=== PATIENT | male | born 1985 | race Caucasian/White ===

== ENCOUNTER 2021-05-18 16:03 | Outpatient (CLI) | payer OTHER | END 2021-05-18 16:04 | disposition critical access hospital (66) | LOC: EMS 16:03 | DX: R11.2 Nausea with vomiting, unspecified (principal); R55 Syncope and collapse | CPT/HCPCS: A0425; A0429 ==

== ENCOUNTER 2021-05-18 16:21 | Emergency (ER) | payer OTHER ==
--- NOTE | 2021-05-18 16:30 | ED Physician Documentation ---
History of Present Illness - Stated complaint Stated Complaint: PANIC ATTACK - History obtained from History obtained from: Patient, EMS - Additonal information Additional information: 36-year-old gentleman with history of 1 panic attack in the past has what he thinks was a panic attack today. He was in his usual state of health and then became nauseous and vomited once, and then felt like everything was getting away from him and got panicky. He feels much better now, no medications were given in route. There is no associated chest pain or trouble breathing. His medications include rosuvastatin, lisinopril, and trazodone for sleep. He is also currently on weekly fluconazole for a skin infection. Review of Systems Constitutional: denies: Fever, Chills Cardiac: denies: Chest pain / pressure, Palpitations Respiratory: denies: Dyspnea, Cough PD ED PE NORMAL - Vitals Vital signs reviewed: Yes - General General: Alert and oriented X 3, No acute distress - Neck Neck: Supple, no meningeal sign, Thyroid normal - Cardiac Cardiac: RRR, No murmur - Respiratory Respiratory: No respiratory distress, Clear bilaterally - Abdomen Abdomen: Non tender - Neuro Neuro: Alert and oriented X 3, Normal speech - Psych Psych: Normal mood, Normal affect Results - Vitals Vitals: Vital Signs - 24 hr 05/18/21 16:27 Temperature 37.1 C Heart Rate 98 Respiratory 19 Rate Blood Pressure 145/105 H O2 Saturation 99 Oxygen O2 Source Room air - EKG (time done) 1641 Rate: Rate (enter#) (97) Rhythm: NSR [place]: RAD Intervals: Normal [place] QRS: Normal Ischemia: Non specific changes - Labs Labs: Laboratory Tests 05/18/21 05/18/21 05/18/21 16:40 16:40 16:40 WBC 6.6 RBC 5.16 Hgb 16.5 Hct 46.7 MCV 90.5 MCH 32.0 H MCHC 35.3 RDW 11.6 L Plt Count 206 MPV 9.3 Neut # (Auto) 4.5 Lymph # (Auto) 1.5 [place] # (Auto) 0.5 Eos # (Auto) 0.1 Baso # (Auto) 0.0 Absolute Nucleated RBC 0.00 Nucleated RBC % 0.0 VBG pH 7.418 H VBG pCO2 39.4 L VBG pO2 29.8 VBG HCO3 24.9 VBG Total CO2 26.1 VBG O2 Saturation 64.8 VBG Base Excess 0.5 Sodium 136 Potassium 3.8 Chloride 102 Carbon Dioxide 25 Anion Gap 9.0 BUN 16 Creatinine 1.2 Estimated GFR (MDRD) 68 L Glucose 106 H Calcium 9.5 PD MEDICAL DECISION MAKING - ED course ED course: 36-year-old gentleman presents after resolved panic attack with negative diagnostics and feeling better here. Declined a prescription for recurrent anxiety. Departure - Departure Disposition: 01 Home, Self Care Clinical Impression: Panic attack Condition: Good Record reviewed to determine appropriate education?: Yes Instructions: ED Panic Attack Comments: Call your doctor to arrange a follow-up appointment, make the next available appointment. In the interim, return anytime if worse or if new symptoms develop. Discharge Date/Time: 05/18/21 17:12
[2021-05-18 16:34] VITALS: BP 145/105
[2021-05-18 16:52] LABS: BASOPHILS % (AUTO) 0.2 %; EOSINOPHILS # (AUTO) 0.1 10^3/uL (0.0-0.7); EOSINOPHILS % (AUTO) 1.1 %; HCT - HEMATOCRIT 46.7 % (42.0-52.0); HGB - HEMOGLOBIN 16.5 g/dL (14.0-18.0); LYMPHOCYTES # (AUTO) 1.5 10^3/uL (1.5-3.5); LYMPHOCYTES % (AUTO) 23.1 %; MEAN CORPUSCULAR HGB CONC 35.3 g/dL (32.0-36.0); MEAN CORPUSCULAR VOLUME 90.5 fL (80.0-94.0); MEAN PLATELET VOLUME 9.3 fL (7.4-11.4); MONOCYTES # (AUTO) 0.5 10^3/uL (0.0-1.0); MONOCYTES % (AUTO) 7.2 %; NEUTROPHILS # (AUTO) 4.5 10^3/uL (1.5-6.6); NEUTROPHILS % (AUTO) 68.2 %; PLT - PLATELET COUNT 206 10^3/uL (130-450); RED BLOOD COUNT 5.16 10^6/uL (4.70-6.10); RED CELL DISTRIBUTION WIDTH 11.6 % (12.0-15.0); WHITE BLOOD COUNT 6.6 x10^3/uL (4.8-10.8)
[2021-05-18 16:54] LABS: CALCIUM 9.5 mg/dL (8.5-10.3); CREATININE 1.2 mg/dL (0.6-1.2); POTASSIUM 3.8 mmol/L (3.5-5.0); VBG BASE EXCESS 0.5 mmol/L (-2 - +2); VBG HCO3 24.9 mmol/L (23-28); VBG OXYGEN SATURATION 64.8 % (60-80); VBG PCO2 39.4 mmHg (41-51); VBG PH 7.418 (7.31-7.41); VBG PO2 29.8 mmHg (25-47); VBG TOTAL CO2 26.1 mmol/L (24-29)
== END 2021-05-18 17:12 | disposition home or self-care (01) ==
LOC: ED 16:21
DX: F41.0 Panic disorder [episodic paroxysmal anxiety] (principal)
CPT/HCPCS: 36415; 80048; 82803; 85025; 93005; 99282; 99283

== ENCOUNTER 2022-07-03 09:05 | Emergency (ER) | payer OTHER ==
[2022-07-03 10:17] LABS: BASOPHILS % (AUTO) 0.3 %; EOSINOPHILS # (AUTO) 0.1 10^3/uL (0.0-0.7); EOSINOPHILS % (AUTO) 2.3 %; HCT - HEMATOCRIT 48.3 % (42.0-52.0); HGB - HEMOGLOBIN 16.7 g/dL (14.0-18.0); LYMPHOCYTES # (AUTO) 0.6 10^3/uL (1.5-3.5); MEAN CORPUSCULAR HEMOGLOBIN 31.3 pg (27.0-31.0); MEAN CORPUSCULAR HGB CONC 34.6 g/dL (32.0-36.0); MEAN CORPUSCULAR VOLUME 90.6 fL (80.0-94.0); MEAN PLATELET VOLUME 9.2 fL (7.4-11.4); MONOCYTES # (AUTO) 0.4 10^3/uL (0.0-1.0); MONOCYTES % (AUTO) 12.2 %; NEUTROPHILS # (AUTO) 2.3 10^3/uL (1.5-6.6); NEUTROPHILS % (AUTO) 66.9 %; PLT - PLATELET COUNT 177 10^3/uL (130-450); RED BLOOD COUNT 5.33 10^6/uL (4.70-6.10); RED CELL DISTRIBUTION WIDTH 11.5 % (12.0-15.0); WHITE BLOOD COUNT 3.5 x10^3/uL (4.8-10.8)
[2022-07-03 10:18] LABS: ALBUMIN 4.4 g/dL (3.2-5.5); ALBUMIN/GLOBULIN RATIO 1.4 (1.0-2.2); BILIRUBIN,TOTAL 1.1 mg/dL (0.2-1.0); CALCIUM 8.9 mg/dL (8.5-10.3); CREATININE 1.1 mg/dL (0.6-1.2); POTASSIUM 3.8 mmol/L (3.5-5.0); TOTAL PROTEIN 7.5 g/dL (6.7-8.2)
[2022-07-03] MEDS ORDERED: SODIUM CHLORIDE 0.9% 1,000 ML IV STA (10:30)
--- NOTE | 2022-07-03 10:33 | ED Physician Documentation ---
History of Present Illness - Stated complaint Stated Complaint: COUGH/VOMIT/DIARRHEA - Chief complaint Chief Complaint: Neuro - History obtained from History obtained from: Patient - History of Present Illness Timing: Today Pain level max: 0 Pain level now: 0 - Additonal information Additional information: Patient is a 37-year-old male who presents to the emergency department with cough, congestion for the past several days. No fevers. States today he had a coughing episode followed by a vomiting episode. He states that immediately after this he felt lightheaded, dizzy and near syncopal. He states he feels better now. No chest pain. No current nausea. No diarrhea. No abdominal pain. He states he has had panic attacks in the past but that this felt different. No palpitations. Review of Systems Constitutional: denies: Fever, Chills Nose: reports: Rhinorrhea / runny nose, Congestion Cardiac: denies: Chest pain / pressure, Palpitations, Calf pain Respiratory: reports: Cough. denies: Dyspnea, Hemoptysis, Wheezing GI: reports: Nausea, Vomiting. denies: Abdominal Pain, Diarrhea : denies: Dysuria Skin: denies: Rash Musculoskeletal: denies: Neck pain, Back pain Neurologic: denies: Headache PD PAST MEDICAL HISTORY - Past Medical History Past Medical History: Yes Psych: Anxiety - Allergies Allergies/Adverse Reactions: Allergies Allergy/AdvReac Type Severity Reaction Status Date / Time sulfamethoxazole Allergy Unknown Verified 07/03/22 09:35 [From ] trimethoprim [From ] Allergy Unknown Verified 07/03/22 09:35 - Living Situation Living Situation: reports: With family Living Arrangement: reports: At home - Social History Does the pt smoke?: Yes Smoking Status: Current every day smoker (Vape) Does the pt have substance abuse?: No - Family History Family history: reports: Non contributory PD ED PE NORMAL - Vitals Vital signs reviewed: Yes - General General: Alert and oriented X 3, No acute distress - HEENT HEENT: PERRL, Ears normal, Moist mucous membranes, Pharynx benign - Neck Neck: Supple, no meningeal sign - Cardiac Cardiac: RRR, Strong equal pulses - Respiratory Respiratory: No respiratory distress, Clear bilaterally - Abdomen Abdomen: Soft, Non tender, Non distended - Derm Derm: Warm and dry, No rash - Neuro Neuro: Alert and oriented X 3 - Psych Psych: Normal mood, Normal affect Results - Vitals Vitals: Vital Signs - 24 hr 07/03/22 07/03/22 07/03/22 09:36 09:44 11:00 Temperature 37.4 C Heart Rate 100 79 77 Respiratory 18 21 16 Rate Blood Pressure 125/97 H 150/101 H 139/96 H O2 Saturation 100 96 99 Oxygen O2 Source Room air - EKG (time done) 940 EKG releavant findings:: EKG personally interpreted by author of this note. Relevant findings are: Rate: Rate (enter#) (95) Rhythm: NSR [place]: Normal Intervals: Normal [place] QRS: Normal Ischemia: T wave inversion (III) - Labs Labs: Laboratory Tests 07/03/22 07/03/22 07/03/22 09:43 09:55 09:55 WBC 3.5 L RBC 5.33 Hgb 16.7 Hct 48.3 MCV 90.6 MCH 31.3 H MCHC 34.6 RDW 11.5 L Plt Count 177 MPV 9.2 Neut # (Auto) 2.3 Lymph # (Auto) 0.6 L [place] # (Auto) 0.4 Eos # (Auto) 0.1 Baso # (Auto) 0.0 Absolute Nucleated RBC 0.00 Nucleated RBC % 0.0 Sodium 135 Potassium 3.8 Chloride 101 Carbon Dioxide 24 Anion Gap 10.0 BUN 11 Creatinine 1.1 Estimated GFR (MDRD) 75 L Glucose 109 H POC Whole Bld Glucose 118 H Calcium 8.9 Total Bilirubin 1.1 H AST 26 ALT 34 Alkaline Phosphatase 81 Troponin I High Sens Total Protein 7.5 Albumin 4.4 Globulin 3.1 Albumin/Globulin Ratio 1.4 Lipase 41 07/03/22 09:55 WBC RBC Hgb Hct MCV MCH MCHC RDW Plt Count MPV Neut # (Auto) Lymph # (Auto) [place] # (Auto) Eos # (Auto) Baso # (Auto) Absolute Nucleated RBC Nucleated RBC % Sodium Potassium Chloride Carbon Dioxide Anion Gap BUN Creatinine Estimated GFR (MDRD) Glucose POC Whole Bld Glucose Calcium Total Bilirubin AST ALT Alkaline Phosphatase Troponin I High Sens 3.3 Total Protein Albumin Globulin Albumin/Globulin Ratio Lipase - Rads (name of study) cxr Relevant Findings:: Final report received, See rad report PD Medical Decision Making - ED course Complexity details: reviewed results, re-evaluated patient, considered differential, d/w patient ED course: Patient is very well-appearing, nontoxic. Afebrile. No hypoxia. No respiratory distress. No acute findings on chest x-ray. His EKG does not show any significant acute abnormalities. CBC has a mild neutropenia. Your abdominal panel does not show any significant abnormalities. High sensitive troponin is negative. Patient feels much better after IV fluids. Tolerating p.o. without difficulty. Appears to have a viral syndrome. We will have him follow-up with his doctor for further care. Abdomen is soft, nontender nondistended on serial exam. Patient counseled regarding signs and symptoms for which I believe and urgent re-evaluation would be necessary. Patient with good understanding of and agreement to plan and is comfortable going home at this time This document was made in part using voice recognition software. While efforts are made to proofread this document, sound alike and grammatical errors may occur. Departure - Departure Disposition: 01 Home, Self Care Clinical Impression: Viral syndrome Condition: Good Instructions: ED Viral Syndrome Follow-Up: your,doctor in 1 week [Other] Comments: Please drink plenty of fluids and rest. Return if you worsen. Your laboratory testing, EKG and chest x-ray did not show any acute abnormalities today. This appears to be a viral syndrome and should improve on its own. Discharge Date/Time: 07/03/22 11:41
--- NOTE | 2022-07-03 10:34 | XRAY Report ---
PROCEDURE: Chest 1 View X-Ray INDICATIONS: Chest Pain TECHNIQUE: One view of the chest was acquired. COMPARISON: None. FINDINGS: Surgical changes and devices: None. Lungs and pleura: No pleural effusions or pneumothorax. Lungs are clear. Mediastinum: Mediastinal contours appear normal. Heart size is normal. Bones and chest wall: No suspicious bony lesions. Overlying soft tissues appear unremarkable. IMPRESSION: No acute cardiopulmonary findings. Reviewed by: Rubén Small MD on 07/03/2022 9:32 AM TANNER Approved by: Rubén Small MD on 07/03/2022 9:32 AM TANNER Station ID: [id number]
[2022-07-03 11:40] VITALS: BP 139/96
== END 2022-07-03 11:41 | disposition home or self-care (01) ==
LOC: ED 09:05
DX: B34.9 Viral infection, unspecified (principal); F17.290 Nicotine dependence, other tobacco product, uncomplicated
CPT/HCPCS: 36415; 80053; 83690; 84484; 85025; 93005; 96360; 99283

== ENCOUNTER 2022-09-13 13:47 | Emergency (ER) | payer OTHER ==
[2022-09-13 14:39] LABS: BILIRUBIN,URINE NEGATIVE (NEGATIVE); GLUCOSE, URINE (UA) NEGATIVE (NEGATIVE); KETONES,URINE (UA) 40 mg/dL (NEGATIVE); LEUKOCYTE ESTERASE, URINE NEGATIVE (NEGATIVE); NITRITE,URINE NEGATIVE (NEGATIVE); OCCULT BLOOD,URINE NEGATIVE (NEGATIVE); PH,URINE 6.5 PH (5.0-7.5); PROTEIN,URINE NEGATIVE (NEGATIVE); UROBILINOGEN,URINE 0.2 (NORMAL) E.U./dL (NORMAL)
[2022-09-13 14:41] LABS: BASOPHILS % (AUTO) 0.4 %; EOSINOPHILS # (AUTO) 0.1 10^3/uL (0.0-0.7); HCT - HEMATOCRIT 45.7 % (42.0-52.0); LYMPHOCYTES # (AUTO) 1.1 10^3/uL (1.5-3.5); LYMPHOCYTES % (AUTO) 13.3 %; MEAN CORPUSCULAR HEMOGLOBIN 31.9 pg (27.0-31.0); MEAN PLATELET VOLUME 9.1 fL (7.4-11.4); MONOCYTES # (AUTO) 0.5 10^3/uL (0.0-1.0); MONOCYTES % (AUTO) 5.7 %; NEUTROPHILS # (AUTO) 6.3 10^3/uL (1.5-6.6); NEUTROPHILS % (AUTO) 79.5 %; PLT - PLATELET COUNT 239 10^3/uL (130-450); RED BLOOD COUNT 5.02 10^6/uL (4.70-6.10); RED CELL DISTRIBUTION WIDTH 11.5 % (12.0-15.0)
[2022-09-13 14:49] LABS: CLARITY,URINE CLEAR (CLEAR)
[2022-09-13 15:00] LABS: ALBUMIN 4.5 g/dL (3.2-5.5); ALBUMIN/GLOBULIN RATIO 1.5 (1.0-2.2); BILIRUBIN,TOTAL 1.3 mg/dL (0.2-1.0); CALCIUM 9.5 mg/dL (8.5-10.3); POTASSIUM 3.7 mmol/L (3.5-5.0); TOTAL PROTEIN 7.5 g/dL (6.7-8.2)
--- NOTE | 2022-09-13 15:56 | ED Physician Documentation ---
PD HPI NVD - Stated complaint Stated Complaint: SHAKING,VOMITING,CHEST PX, - Chief complaint Chief Complaint: Abd Pain - History obtained from History obtained from: Patient - History of Present Illness Timing - onset: How many hours ago (1), Today Timing - details: Abrupt onset (he had onset of nausea followed by vomiting couple of times. Some left sided crampy abd pain soon after. He then felt very anxious and started to feel short of breath, breath fast, and develop some numbness in arms/fingers and around face, then shakiness/spasms in arms/fingers. Dante lightheaded.), Now resolved (symptoms improved enroute to ER and resolved at time of triage.) Improved by: Vomiting (he states he and his sons camped out few days and had some fish and shrimp as well as other grill/camping foods. Back home today and had nausea/vomiting abruptly when home.) Similar symptoms before: Diagnosis (he states he has had occasional "panic attacks" in the past, but not to the degree of the numbness/lightheaded of today.) Recently seen: Not recently seen Review of Systems Constitutional: denies: Fever, Chills Nose: denies: Rhinorrhea / runny nose, Congestion Throat: denies: Sore throat Respiratory: denies: Cough PD PAST MEDICAL HISTORY - Past Medical History Cardiovascular: Hypertension, High cholesterol Respiratory: None Psych: Anxiety - Present Medications Home Medications: Ambulatory Orders Medication Instructions Recorded Confirmed Lisinopril [Zestril] 30 mg PO DAILY 09/13/22 09/13/22 Rosuvastatin Calcium [Crestor] 10 mg PO DAILY 09/13/22 09/13/22 diphenhydrAMINE HCL [Sleep Aid] 25 mg PO HS 09/13/22 09/13/22 - Allergies Allergies/Adverse Reactions: Allergies Allergy/AdvReac Type Severity Reaction Status Date / Time sulfamethoxazole Allergy Unknown Verified 09/13/22 14:13 [From ] trimethoprim [From ] Allergy Unknown Verified 09/13/22 14:13 - Social History Does the pt smoke?: Yes Smoking Status: Current every day smoker (Vape) Does the pt have substance abuse?: No PD ED PE NORMAL - Vitals Vital signs reviewed: Yes - General General: Alert and oriented X 3, No acute distress, Well developed/nourished - Cardiac Cardiac: RRR, No murmur - Respiratory Respiratory: Clear bilaterally - Abdomen Abdomen: Normal bowel sounds, Soft, Non tender - Derm Derm: Normal color, Warm and dry - Extremities Extremities: No edema, No calf tenderness / cord Results - Vitals Vitals: Vital Signs - 24 hr 09/13/22 09/13/22 14:13 16:03 Temperature 36.8 C Heart Rate 113 H 90 Respiratory 28 H 18 Rate Blood Pressure 135/97 H 137/96 H O2 Saturation 100 98 Oxygen O2 Source Room air - Labs Labs: Laboratory Tests 09/13/22 09/13/22 09/13/22 14:25 14:36 14:36 WBC 8.0 RBC 5.02 Hgb 16.0 Hct 45.7 MCV 91.0 MCH 31.9 H MCHC 35.0 RDW 11.5 L Plt Count 239 MPV 9.1 Neut # (Auto) 6.3 Lymph # (Auto) 1.1 L [place] # (Auto) 0.5 Eos # (Auto) 0.1 Baso # (Auto) 0.0 Absolute Nucleated RBC 0.00 Nucleated RBC % 0.0 Sodium 136 Potassium 3.7 Chloride 102 Carbon Dioxide 25 Anion Gap 9.0 BUN 16 Creatinine 1.0 Estimated GFR (MDRD) 83 L Glucose 118 H Calcium 9.5 Total Bilirubin 1.3 H AST 29 ALT 37 Alkaline Phosphatase 61 Total Protein 7.5 Albumin 4.5 Globulin 3.0 Albumin/Globulin Ratio 1.5 Lipase 39 Urine Color YELLOW Urine Clarity CLEAR Urine pH 6.5 Ur Specific [place] 1.025 Urine Protein NEGATIVE Urine Glucose (UA) NEGATIVE Urine Ketones 40 H Urine Occult Blood NEGATIVE Urine Nitrite NEGATIVE Urine Bilirubin NEGATIVE Urine Urobilinogen 0.2 (NORMAL) Ur Leukocyte Esterase NEGATIVE Ur Microscopic Review NOT INDICATED Urine Culture Comments NOT INDICATED PD Medical Decision Making - ED course Complexity details: considered differential (sounds like food intolerance or start of GE. Those symptoms are gone now though. He describes the symptoms of hyperventilation after it. Given benign appearance now would fit as well, as other causes of the symptoms he had would not resolve so readily and completely, I would think. No testing. ), d/w patient Departure - Departure Disposition: 01 Home, Self Care Clinical Impression: Nausea and vomiting, Acute hyperventilation Condition: Stable Record reviewed to determine appropriate education?: Yes Comments: Notes unclear the cause of the nausea and vomiting. As he said it could have been something you ate or a pretty food toxin are such. It is seem like you have a significant cause of it right now given your symptoms have improved and no belly pain or tenderness persisting etc. Your basic blood tests showed a normal white count as well as electrolytes blood sugar liver enzymes and kidney function. The other symptoms do sound likely to be a hyperventilation with the numbness in shakiness and confusion. You seem well now. I would not see reason for any further testing at this point. Home and rest and stay well-hydrated. See how you do through the day. Discharge Date/Time: 09/13/22 16:40
[2022-09-13 16:04] VITALS: BP 137/96
== END 2022-09-13 16:40 | disposition home or self-care (01) ==
LOC: ED 13:47
DX: R06.4 Hyperventilation (principal); R11.2 Nausea with vomiting, unspecified; I10 Essential (primary) hypertension; E78.00 Pure hypercholesterolemia, unspecified; F17.290 Nicotine dependence, other tobacco product, uncomplicated; Z79.899 Other long term (current) drug therapy
CPT/HCPCS: 36415; 80053; 81001; 81003; 83690; 85025; 87086; 99283

== ENCOUNTER 2022-12-16 18:41 | Emergency (ER) | payer OTHER ==
[2022-12-16 19:15] VITALS: BP 122/90; O2SAT 98
--- NOTE | 2022-12-16 19:20 | XRAY Report ---
PROCEDURE: Shoulder 3 View LT INDICATIONS: fall, shoulder pain TECHNIQUE: 3 views of the shoulder were acquired. COMPARISON: None. FINDINGS: Bones: No fractures or dislocations. No suspicious bony lesions. Visualized ribs appear intact. Soft tissues: No suspicious soft tissue calcifications. IMPRESSION: No acute bony abnormality. Normal alignment. If there is continued clinical concern for pathology or occult fracture, consider follow-up imaging w ith repeat radiographs in 10-14 days and possible advanced imaging (CT, MRI, bone scan) if symptoms p ersist. Reviewed by: Albert Urena MD on 12/16/2022 7:19 PM PDT Approved by: Albert Urena MD on 12/16/2022 7:19 PM PDT Station ID: [id number]
[2022-12-16] MEDS ORDERED: KETOROLAC 60 MG/2 ML VIAL IM STA (19:23)
[2022-12-16] MEDS ORDERED: methocarbamoL 500 MG TABLET PO STA (19:23)
--- NOTE | 2022-12-16 19:34 | ED Physician Documentation ---
PD HPI UPPER EXT INJURY - Stated complaint Stated Complaint: LT SHOULDER PX - Chief complaint Chief Complaint: Trauma Ext - History obtained from History obtained from: Patient - History of Present Illness Location: Left, Shoulder Where injury occurred: Home Timing - onset: How many hours ago (1) Timing - duration: Hours (1) Pain level max: 5 Pain level now: 5 Improved by: Rest, Ice, Immobilization Worsened by: Moving, Palpating Associated symptoms: No: Weakness, Numbness, Tingling, Swelling, Discolored Contributing factors: No: Anticoagulated - Additonal information Additional information: Patient is a 37-year-old male who presents to the emergency department stating that his left shoulder/trapezius area was injured tonight 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 States he felt a pop and is having pain in the left trapezius area. Worse with movement, better with rest. Patient is right- handed. Went to the walk-in clinic and was sent here for x-rays. No fall. No other trauma. Review of Systems Constitutional: denies: Fever, Chills Respiratory: denies: Cough GI: denies: Nausea, Vomiting, Diarrhea Skin: denies: Rash Musculoskeletal: denies: Neck pain, Back pain Neurologic: denies: Headache PD PAST MEDICAL HISTORY - Past Medical History Cardiovascular: Hypertension, High cholesterol Respiratory: None Psych: Depression, Anxiety - Past Surgical History Past Surgical History: No - Present Medications Home Medications: Ambulatory Orders Medication Instructions Recorded Confirmed Lisinopril [Zestril] 30 mg PO DAILY 09/13/22 11/06/22 Rosuvastatin Calcium [Crestor] 10 mg PO DAILY 09/13/22 11/06/22 diphenhydrAMINE HCL [Sleep Aid] 25 mg PO HS 09/13/22 11/06/22 LORazepam [Ativan] 1 mg PO PRN PRN 11/06/22 11/06/22 HYDROcod/ACETAM 5/325 [[place] 5/325] 1 - 2 ea PO Q6H PRN #14 tablet 12/16/22 Meloxicam [Mobic] 7.5 mg PO BID PRN #20 tablet 12/16/22 methocarbamoL [Robaxin] 500 mg PO Q6H PRN #20 tablet 12/16/22 - Allergies Allergies/Adverse Reactions: Allergies Allergy/AdvReac Type Severity Reaction Status Date / Time sulfamethoxazole Allergy Unknown Verified 12/16/22 18:59 [From ] trimethoprim [From ] Allergy Unknown Verified 12/16/22 18:59 - Social History Does the pt smoke?: Yes Smoking Status: Current every day smoker Does the pt have substance abuse?: No PD ED PE NORMAL - Vitals Vital signs reviewed: Yes - General General: Alert and oriented X 3, No acute distress - HEENT HEENT: Moist mucous membranes - Neck Neck: Supple, no meningeal sign - Cardiac Cardiac: RRR - Respiratory Respiratory: No respiratory distress, Clear bilaterally - Derm Derm: Warm and dry - Extremities Extremities: No deformity, Normal ROM s pain, Other - Free text exam Free text exam: Tender to palpation over the left trapezial ridge. Reproduces his pain. No tenderness over the left clavicle, left AC joint or left glenohumeral joint. There is no significant pain with passive range of motion of the shoulder. Active range of motion hurts when he tries to abduct the shoulder over 90 degrees. Neurovascularly intact including the axillary nerve. Results - Vitals Vitals: Vital Signs - 24 hr 12/16/22 19:00 Temperature 36.5 C Heart Rate 78 Respiratory 18 Rate Blood Pressure 122/90 H O2 Saturation 98 Oxygen O2 Source Room air - Rads (name of study) Left shoulder x-ray Relevant Findings:: Final report received, See rad report PD Medical Decision Making - ED course Complexity details: reviewed results, considered differential, d/w patient, d/w family ED course: No acute findings on x-ray of the left shoulder. Has tenderness over the left trapezial ridge. Likely soft tissue injury. Neurovascular intact including the axillary nerve. No evidence of tendon injury. Normal inspection and rotation of the bicep. No significant pain with internal/external rotation of the shoulder. We will place in a sling for comfort, placed on pain medication and muscle relaxants. We will have him follow-up with orthopedics if he fails to improve as expected. Patient counseled regarding signs and symptoms for which I believe and urgent re-evaluation would be necessary. Patient with good understanding of and agreement to plan and is comfortable going home at this time This document was made in part using voice recognition software. While efforts are made to proofread this document, sound alike and grammatical errors may occur. Departure - Departure Disposition: 01 Home, Self Care Clinical Impression: Left shoulder strain Qualifiers: Encounter type: initial encounter Qualified Code(s): S46.912A - Strain of unspecified muscle, fascia and tendon at shoulder and upper arm level, left arm, initial encounter Condition: Good Instructions: ED Sprain Shoulder Follow-Up: your,doctor in 1 week [Other] Prescriptions: Meloxicam [Mobic] 7.5 mg PO BID PRN #20 tablet PRN Reason: Pain HYDROcod/ACETAM 5/325 [[place] 5/325] 1 - 2 ea PO Q6H PRN #14 tablet PRN Reason: Pain methocarbamoL [Robaxin] 500 mg PO Q6H PRN #20 tablet PRN Reason: muscle spasm Comments: [facility] [place] Use the medication as prescribed. You can use ice to the affected area. Please use the sling as needed, but remember to start to move your arm in small circles starting on day 1 or 2. This will help to prevent a frozen shoulder. I am prescribing a short course of narcotic pain medication for you. These are potentially dangerous and addictive medications that should be used carefully. These medications may constipate you. Take an hwyw-zdw-pwldfrm stool softener (docusate) twice daily with plenty of water while taking these medications. If you go 24 hours without a bowel movement, take cxiq-yyy-kniqopr miralax, per package instructions. Do not drink or drive while taking these medications. If you received narcotic or sedating medications while in the emergency department, do not drive for 24 hours. Store this medication in a safe, secure place and out of reach of children. It is a violation of federal law to give or sell this medication to another person or to use in a manner other than prescribed. The ED will not refill narcotic prescriptions, including prescriptions lost or stolen. To dispose of unwanted medications: 1. [facility] at [address] in [place] has a medication drop box. They accept prescription medications (in pill form) Tuesday through Tuesday 9:00 a.m. to 5:00 p.m. 2. The [facility] accepts prescription medications (in pill form only) for disposal year round. Call for more information. 3. Contact the [facility] for the next [employer] sponsored prescription drug collection event. , [phone], or [phone]; Forms: PCP List Discharge Date/Time: 12/16/22 19:44
== END 2022-12-16 19:44 | disposition home or self-care (01) ==
LOC: ED 18:41
DX: S46.912A Strain of unspecified muscle, fascia and tendon at shoulder and upper arm level, left arm, initial encounter (principal); X58.XXXA Exposure to other specified factors, initial encounter; I10 Essential (primary) hypertension; F17.200 Nicotine dependence, unspecified, uncomplicated
CPT/HCPCS: 73030; 96372; 99283; A9270

== ENCOUNTER 2023-05-16 06:39 | Outpatient (CLI) | payer OTHER ==
--- NOTE | 2023-05-16 08:40 | MRI Report ---
PROCEDURE: Lumbar Spine WO INDICATIONS: DORSALGIA TECHNIQUE: Noncontrast sagittal T1 spin echo and T2 fast echo, sagittal STIR, axial T1 and T2 fast spin echo thr ough the lumbar spine. In cases with scoliosis, additional coronal T2 fast spin echo may be performe d. COMPARISON: None. FINDINGS: Image quality: Excellent. Alignment and Curvature: There is normal bony alignment. Bone Marrow: Marrow is of normal overall signal. No acute vertebral body compression fractures. Spinal Cord: Conus medullaris terminates at the L1-L2 level. Visualized cord demonstrates normal si gnal and size. Paraspinous Soft Tissues: No paravertebral masses. T12-L1: Normal in appearance. L1-L2: Normal in appearance. L2-L3: Normal in appearance. L3-L4: Minimal disc bulge. Mild facet hypertrophy. No canal stenosis or foraminal stenosis. L4-L5: Minimal disc bulge. Mild facet hypertrophy. No significant canal stenosis or foraminal steno sis. L5-S1: Facet hypertrophy. Mild disc bulge. No canal stenosis or foraminal stenosis. IMPRESSION: 1. Mild lower lumbar facet hypertrophy. 2. No canal stenosis or foraminal stenosis. Reviewed by: Mayo Castillo MD on 05/16/2023 8:38 AM PST Approved by: Mayo Castillo MD on 05/16/2023 8:38 AM PST Station ID: [id number]
== END 2023-05-16 06:40 | disposition home or self-care (01) ==
LOC: DI 06:39
PROVIDERS: ATTEND Internal Medicine
DX: M51.36 Other intervertebral disc degeneration, lumbar region (principal); M47.816 Spondylosis without myelopathy or radiculopathy, lumbar region; M47.817 Spondylosis without myelopathy or radiculopathy, lumbosacral region; M51.37 Other intervertebral disc degeneration, lumbosacral region